=== PATIENT | male | born 1975 | race Caucasian/White ===

== ENCOUNTER 2021-03-14 18:49 | Emergency (ER) | payer BC, SELFPAY ==
[2021-03-14 20:58] VITALS: BP 164/100; PULSE 93; RESP 18; TEMP 37; O2SAT 98; BMI 25.7
[2021-03-14 22:46] VITALS: BP 145/96; PULSE 91; RESP 16; O2SAT 98
--- NOTE | 2021-03-14 23:10 | PC.NURSE ---
PT TO ROOM, CHG INTO GOWN AND AWAITING FOR MD'S EVAL.
--- NOTE | 2021-03-14 23:54 | PC.NURSE ---
LABS DRAWN TO LAB. PT AWAITING FOR 'S EVAL. PT UP TO RESTROOM FOR URINE SAMPLE TO LAB. PT STATES I HAVE BUMPS AROUND MY RECTUM AREA AND THEN THEY DISAPPEAR
[2021-03-14 23:56] LABS: MANUAL DIFF FLAG NO
[2021-03-15 00:03] LABS: Basophils Percent Auto 0.4 % (0-2); Eosinophils Absolute Auto 0.1 X10*3/uL (0.0-0.4); Hematocrit 47.2 % (42-52); Hemoglobin 16.1 g/dl (14.0-18.0); Imm Gran Abs Auto 0.02 X10*3/uL (0.00-0.03); Imm Gran Pct Auto 0.3 % (0.0-0.4); Lymphocytes Absolute Auto 1.6 X10*3/uL (1.2-4.9); Lymphocytes Percent Auto 23.9 % (20-40); Mean Corpuscular HGB Conc 34.1 g/dl (31.0-36.0); Mean Corpuscular Hemoglobin 29.4 pg (27.0-33.0); Mean Corpuscular Volume 86.1 fL (80-98); Mean Platelet Volume 10.2 fL (9.4-12.4); Monocytes Absolute Auto 0.7 X10*3/uL (0.1-1.2); Monocytes Percent Auto 10.9 % (2-11); Neutrophils Absolute Auto 4.2 X10*3/uL (2.0-8.3); Neutrophils Percent Auto 63.5 % (45-73); Platelet Count 231 X10*3/uL (160-400); Red Blood Count 5.48 X10*6/uL (4.60-5.80); Red Cell Distribution Width 12.3 % (11.0-16.0); White Blood Count 6.7 X10*3/uL (4.8-10.8)
[2021-03-15 00:05] LABS: Glucose Urine UA NEG (NEG); Leukocyte Esterase Urine NEG (NEG); Nitrite Urine NEG (NEG); PH 6.5 (5.0-8.0); Urine Blood NEG (NEG); Urine Ketones NEG (NEG); Urine Protein NEG (NEG-TRACE)
[2021-03-15 00:16] LABS: Appearance Urine CLEAR; Color Urine YELLOW
[2021-03-15 00:21] LABS: INTERNATIONAL NORM RATIO 1.1 (0.9-1.1); Prothrombin Time 12.5 SEC (9.9-13.0)
[2021-03-15 00:27] LABS: Alanine Aminotransferase 23 U/L (0-40); Albumin Level 5.1 g/dL (3.5-5.0); Alkaline Phosphatase 63 U/L (39-117); Anion Gap 12 (12-20); Aspartate Amino Transferase 17 U/L (5-37); Bilirubin Total < 0.2 mg/dL (0.0-1.0); Blood Urea Nitrogen 13 mg/dL (9-16); Calcium 9.7 mg/dL (8.4-10.2); Carbon Dioxide 30 mmol/L (22-29); Chloride 104 mmol/L (96-108); Creatinine Clr Calc Pharmacy 72.9; Estimated Glomerular Filt Rate > 60; Glucose Random 113 mg/dL (60-115); Potassium 3.7 mmol/L (3.3-5.1); Sodium 142 mmol/L (135-145); Total Protein 7.7 g/dL (6.5-8.0)
--- NOTE | 2021-03-15 01:43 | ED.GENADULT ---
HPI - General Adult General Chief complaint: GI Bleed Stated complaint: rectum bleeding Time Seen by Provider: 03/14/21 23:42 Source: patient Mode of arrival: ambulatory History of Present Illness HPI narrative: 45-year-old male without significant past medical history, not on blood thinners, and no known history of bleeding disorders presents with painless bleeding after a hard bowel movement last night that patient states has continued to who is. This is not been associated with any fever, chills, nausea, vomiting, abdominal pain, or urinary pain/burning/frequency. Patient states that he has had hemorrhoid problems in the past. Related Data Allergies Allergy/AdvReac Type Severity Reaction Status Date / Time No Known Allergies Allergy Verified 03/14/21 20:58 Review of Systems Review of Systems: Pertinent positives and negatives as stated in HPI 10 point review systems is otherwise negative. PMFSH Past Medical History Source: nursing notes reviewed Medical History Patient denies medical problems Social History Social History Advance Directives: No Advance Directives Information Provided: Yes Physical Exam Vital Signs: Vital Signs: Last Vital Signs Temp 98.6 F 03/14/21 20:58 Pulse 91 03/14/21 22:46 Resp 16 03/14/21 22:46 BP 145/96 H 03/14/21 22:46 Pulse Ox 98 03/14/21 22:46 Body Mass Index 25.7 VITAL SIGNS: Reviewed. GENERAL: Well developed, well nourished, in no acute distress. HEAD: Normocephalic/atraumatic EYES: PERRLA, EOMI LUNGS: Normal breath sounds. No adventitious sounds or accessory muscle use. SpO2<98> CARDIOVASCULAR: Regular rate and rhythm without noted murmurs ABDOMEN: Soft, non-tender, non-distended with bowel sounds. ALMA: Noted thrombosed hemorrhoid at the 2 o'clock position with what appears to be a small opening where partial clot is observed. Otherwise only brown stool noted on finger. SKIN: Inspection of the skin reveals no rashes NEUROLOGIC: Alert and oriented x 4. Strength and sensation to light touch were grossly intact x 4. Course Course Course Narrative: This is a 45-year-old male with history and clinical presentation consistent with thrombosed hemorrhoid that appears to have a small opening through which the bleeding is likely occurring as well as a small clot. An 11 blade was used to make a small incision on the hemorrhoid with successful removal of clot and applied topical lidocaine to the area afterwards for pain control. Patient reports feeling much better and was discharged home in stable condition with instructions follow-up with his primary care provider. Medical Decision Making Lab Data Result diagrams: 03/14/21 23:51 03/14/21 23:51 Labs: Lab Results 03/14/21 03/14/21 03/14/21 Range/Units 23:50 23:51 23:51 WBC 6.7 (4.8-10.8) X10*3/uL RBC 5.48 (4.60-5.80) X10*6/uL Hgb 16.1 (14.0-18.0) g/dl Hct 47.2 (42-52) % MCV 86.1 (80-98) fL MCH 29.4 (27.0-33.0) pg MCHC 34.1 (31.0-36.0) g/dl RDW 12.3 (11.0-16.0) % Plt Count 231 (160-400) X10*3/uL MPV 10.2 (9.4-12.4) fL Immature Gran % (Auto) 0.3 (0.0-0.4) % Neut % (Auto) 63.5 (45-73) % Lymph % (Auto) 23.9 (20-40) % [place] % (Auto) 10.9 (2-11) % Eos % (Auto) 1.0 (0-4) % Baso % (Auto) 0.4 (0-2) % Lymph # (Auto) 1.6 (1.2-4.9) X10*3/uL [place] # (Auto) 0.7 (0.1-1.2) X10*3/uL Eos # (Auto) 0.1 (0.0-0.4) X10*3/uL Baso # (Auto) 0.0 (0.0-0.2) X10*3/uL Abs Immat Gran (auto) 0.02 (0.00-0.03) X10*3/uL Absolute Neuts (auto) 4.2 (2.0-8.3) X10*3/uL Absolute Nucleated RBC 0.000 (0.0-0.012) X10*3/uL Nucleated RBC % (auto) 0.0 (0.0-0.2) /100WBC PT (9.9-13.0) SEC INR (0.9-1.1) Sodium 142 (135-145) mmol/L Potassium 3.7 (3.3-5.1) mmol/L Chloride 104 (96-108) mmol/L Carbon Dioxide 30 H (22-29) mmol/L Anion Gap 12 (12-20) BUN 13 (9-16) mg/dL Creatinine 1.22 (0.5-1.4) mg/dL Estim Creat Clear Calc 72.9 Estimated GFR > 60 Random Glucose 113 (60-115) mg/dL Calcium 9.7 (8.4-10.2) mg/dL Total Bilirubin < 0.2 (0.0-1.0) mg/dL AST 17 (5-37) U/L ALT 23 (0-40) U/L Alkaline Phosphatase 63 (39-117) U/L Total Protein 7.7 (6.5-8.0) g/dL Albumin 5.1 H (3.5-5.0) g/dL Urine Color YELLOW Urine Appearance CLEAR Urine pH 6.5 (5.0-8.0) Ur Specific [place] 1.020 (1.005-1.025) Urine Protein NEG (NEG-TRACE) MG/DL Urine Glucose (UA) NEG (NEG) MG/DL Urine Ketones NEG (NEG) MG/DL Urine Blood NEG (NEG) Urine Nitrite NEG (NEG) Ur Leukocyte Esterase NEG (NEG) 03/15/21 Range/Units 00:00 WBC (4.8-10.8) X10*3/uL RBC (4.60-5.80) X10*6/uL Hgb (14.0-18.0) g/dl Hct (42-52) % MCV (80-98) fL MCH (27.0-33.0) pg MCHC (31.0-36.0) g/dl RDW (11.0-16.0) % Plt Count (160-400) X10*3/uL MPV (9.4-12.4) fL Immature Gran % (Auto) (0.0-0.4) % Neut % (Auto) (45-73) % Lymph % (Auto) (20-40) % [place] % (Auto) (2-11) % Eos % (Auto) (0-4) % Baso % (Auto) (0-2) % Lymph # (Auto) (1.2-4.9) X10*3/uL [place] # (Auto) (0.1-1.2) X10*3/uL Eos # (Auto) (0.0-0.4) X10*3/uL Baso # (Auto) (0.0-0.2) X10*3/uL Abs Immat Gran (auto) (0.00-0.03) X10*3/uL Absolute Neuts (auto) (2.0-8.3) X10*3/uL Absolute Nucleated RBC (0.0-0.012) X10*3/uL Nucleated RBC % (auto) (0.0-0.2) /100WBC PT 12.5 (9.9-13.0) SEC INR 1.1 (0.9-1.1) Sodium (135-145) mmol/L Potassium (3.3-5.1) mmol/L Chloride (96-108) mmol/L Carbon Dioxide (22-29) mmol/L Anion Gap (12-20) BUN (9-16) mg/dL Creatinine (0.5-1.4) mg/dL Estim Creat Clear Calc Estimated GFR Random Glucose (60-115) mg/dL Calcium (8.4-10.2) mg/dL Total Bilirubin (0.0-1.0) mg/dL AST (5-37) U/L ALT (0-40) U/L Alkaline Phosphatase (39-117) U/L Total Protein (6.5-8.0) g/dL Albumin (3.5-5.0) g/dL Urine Color Urine Appearance Urine pH (5.0-8.0) Ur Specific [place] (1.005-1.025) Urine Protein (NEG-TRACE) MG/DL Urine Glucose (UA) (NEG) MG/DL Urine Ketones (NEG) MG/DL Urine Blood (NEG) Urine Nitrite (NEG) Ur Leukocyte Esterase (NEG) Discharge Plan Discharge Clinical Impression: External hemorrhoid, thrombosed Patient Disposition: Home, Self-Care Instructions: Thrombosed Hemorrhoid (ED), Sitz Bath (DC) Additional Instructions: 1. Recommend doing Sitz baths, please review the information for details, after every bowel movement for 10-15 minutes. 2. Recommend [id number] Tylenol/Advil for additional pain relief as directed on the outside packaging. 3. Application lidocaine no more than every 8 hours as needed for additional symptom relief of the pain. 4. Recommend using [id number] MiraLax at least daily to ensure soft stools. 5. Please follow-up with your primary care provider in the next 1-2 days for re-evaluation. Return to the ER for acute worsening of your symptoms. Referrals: Dutch Robledo MD [Primary Care Provider] - 2 days (Re-evaluation after patient was treated for thrombosed hemorrhoid)
== END 2021-03-15 02:11 | disposition home or self-care (01) ==
PROVIDERS: Emergency Provider Student in an Organized Health Care Education/Training Program; PCP Internal Medicine
DX: K64.5 Perianal venous thrombosis (principal)
CPT/HCPCS: 36415; 46083; 80053; 81003; 85025; 85610; 99283; 99284